=== PATIENT | male | born 1995 | race Caucasian/White ===

== ENCOUNTER 2017-11-28 00:52 | Emergency (ER) | payer BC ==
[2017-11-28 01:05] VITALS: BP 141/76
--- NOTE | 2017-11-28 01:38 | EDM.PDOC ---
ED HPI GENERAL MEDICAL PROBLEM - General Chief Complaint: ENT Problem Stated Complaint: TWO TEETH PULLED 12PM YESTERDAY WONT STOP BLEEDING Time Seen by Provider: 11/28/17 01:03 Source of Information: Reports: Patient History Limitations: Reports: No Limitations - History of Present Illness INITIAL COMMENTS - FREE TEXT/NARRATIVE: The patient presents with dental bleeding. He had 2 teeth pulled about 12 pm yesterday and the will not stop bleeding. Earlier in the day he had no bleeding and he even ate. At about 7:30pm last night it started bleeding again and it wound stop. He has no history of bleeding problems. He does not bruise easy or have bleeding gums. Onset: Gradual Duration: Hour(s): Severity: Moderate Improves with: Reports: None Worsens with: Reports: None Associated Symptoms: Reports: No Other Symptoms - Related Data Allergies Allergy/AdvReac Type Severity Reaction Status Date / Time cefaclor [From Ceclor] Allergy Rash Verified 11/28/17 01:05 Home Meds: Home Meds . [No Known Home Meds] 11/28/17 [History] Past Medical History - Past Surgical History HEENT Surgical History: Reports: Adenoidectomy, Myringotomy w Tube(s), Tonsillectomy GI Surgical History: Reports: Appendectomy Social & Family History - Tobacco Use Smoking Status *Q: Never Smoker - Recreational Drug Use Recreational Drug Use: No ED ROS ENT - Review of Systems Review Of Systems: See Below Constitutional: Reports: No Symptoms HEENT: Reports: Other (Bleeding gums) Respiratory: Reports: No Symptoms Cardiovascular: Reports: No Symptoms Endocrine: Reports: No Symptoms GI/Abdominal: Reports: No Symptoms : Reports: No Symptoms Musculoskeletal: Reports: No Symptoms ED EXAM, ENT - Physical Exam Exam: See Below Exam Limited By: No Limitations General Appearance: Alert, No Apparent Distress Ears: Normal External Exam Nose: Normal Inspection Mouth/Throat: Other (2 teeth missing from the right lower jaw with moderate amount of bleeding.) Course - Vital Signs Last Recorded V/S: Last Vital Signs Temp 98.1 F 11/28/17 00:54 Pulse 75 11/28/17 00:54 Resp 17 11/28/17 00:54 BP 141/76 H 11/28/17 00:54 Pulse Ox 96 11/28/17 00:54 - Re-Assessments/Exams Free Text/Narrative Re-Assessment/Exam: 11/28/17 01:37 I used some suction and silver nitrate and I was able to stop the bleeding. I will keep an eye on him for a little while and make sure he has no more bleeding. 11/28/17 01:46 There has been no more bleeding. I will discharge him home. Departure - Departure Time of Disposition: 01:50 Disposition: Home, Self-Care 01 Condition: Good Clinical Impression: Status post tooth extraction, Bleeding gums - Discharge Information *PRESCRIPTION DRUG MONITORING PROGRAM REVIEWED*: Not Applicable *COPY OF PRESCRIPTION DRUG MONITORING REPORT IN PATIENT PERLA: Not Applicable Referrals: PCP,None [Primary Care Provider] - Forms: ED Department Discharge Additional Instructions: Please return if you are worse. If you do have some mild bleeding. Try some green tea bags on the site that should help but if it does not please come back.
== END 2017-11-28 01:54 | disposition home or self-care (01) ==
LOC: JD.ED 00:52
DX: K91.840 Postprocedural hemorrhage of a digestive system organ or structure following a digestive system procedure (principal); Z88.8 Allergy status to other drugs, medicaments and biological substances
CPT/HCPCS: 99283